=== PATIENT | female | born 1935 | race Caucasian/White ===

== ENCOUNTER 2020-04-19 07:34 | Outpatient (RCR) | payer MEDICARE, BC, SELFPAY | END 2020-05-01 23:59 | disposition home or self-care (01) | LOC: SPT 07:34 | PROVIDERS: PCP Family Medicine; Referring Provider Physician Assistant; Visit Provider Physician Assistant | DX: Z47.1 Aftercare following joint replacement surgery (principal); Z96.651 Presence of right artificial knee joint | CPT/HCPCS: 97110 ==

== ENCOUNTER 2020-05-02 06:00 | Outpatient (RCR) | payer MEDICARE, BC, SELFPAY | END 2020-06-01 23:59 | disposition home or self-care (01) | LOC: SPT 06:00 | PROVIDERS: PCP Family Medicine; Referring Provider Physician Assistant; Visit Provider Physician Assistant | DX: Z47.1 Aftercare following joint replacement surgery (principal); Z96.651 Presence of right artificial knee joint | CPT/HCPCS: 97110 ==

== ENCOUNTER → 2022-04-11 13:58 | Outpatient (BNVA) | payer MEDICARE, SELFPAY | PROVIDERS: PCP Family Medicine; Visit Provider Family Medicine | DX: Z00.00 Encounter for general adult medical examination without abnormal findings (principal) | CPT/HCPCS: 80053; 80061 ==

== ENCOUNTER → 2022-07-04 14:28 | Outpatient (BNVA) | payer MEDICARE, SELFPAY | PROVIDERS: PCP Family Medicine; Visit Provider Surgery | DX: I96 Gangrene, not elsewhere classified (principal); L98.492 Non-pressure chronic ulcer of skin of other sites with fat layer exposed | CPT/HCPCS: 11043; 87070; 87176; 87205; 99213 ==

== ENCOUNTER → 2022-07-11 13:48 | Outpatient (BNVA) | payer MEDICARE, SELFPAY | PROVIDERS: PCP Family Medicine; Visit Provider Surgery | DX: I96 Gangrene, not elsewhere classified (principal); L98.492 Non-pressure chronic ulcer of skin of other sites with fat layer exposed | CPT/HCPCS: 11042 ==

== ENCOUNTER → 2022-07-18 11:23 | Outpatient (BNVA) | payer MEDICARE, OTHER, SELFPAY | PROVIDERS: PCP Family Medicine; Visit Provider Nurse Practitioner Family | DX: I96 Gangrene, not elsewhere classified (principal); L98.492 Non-pressure chronic ulcer of skin of other sites with fat layer exposed | CPT/HCPCS: 11042 ==

== ENCOUNTER → 2022-07-25 13:58 | Outpatient (BNVA) | payer MEDICARE, SELFPAY | PROVIDERS: PCP Family Medicine; Visit Provider Surgery | DX: I96 Gangrene, not elsewhere classified (principal); L98.492 Non-pressure chronic ulcer of skin of other sites with fat layer exposed | CPT/HCPCS: 99212 ==

== ENCOUNTER → 2023-04-28 09:20 | Outpatient (BNVA) | payer MEDICARE, SELFPAY | PROVIDERS: PCP Family Medicine; Visit Provider Family Medicine | DX: E03.9 Hypothyroidism, unspecified (principal); R00.1 Bradycardia, unspecified; R42 Dizziness and giddiness | CPT/HCPCS: 80053; 80061; 84443 ==

== ENCOUNTER 2023-04-29 11:01 | Inpatient (IN) | payer MEDICARE, SELFPAY ==
[2023-04-29] VITALS (34 sets, daily range): BP systolic 129–221; BP diastolic 49–113; PULSE 30–62; RESP 13–24; TEMP 36.7; O2SAT 92–97
--- NOTE | 2023-04-29 11:16 | XR_ITS ---
WS: [id number] Exam: XR chest 1V portable [id number] Date/Time of Exam: 04/29/2023 11:25 AM Reason For Exam: cp No priors. The lungs are hyperinflated. No consolidating infiltrates. Mild plaque atelectasis and/or scarring in the left base. Normal cardiomediastinal silhouette. Bony structures are unremarkable. XR/XR chest 1V portable [id number] IMPRESSION: 1. Pulmonary hyperinflation. No acute process noted.
--- NOTE | 2023-04-29 11:32 | ECG_ITS ---
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 Measurements Intervals [place] Rate: 40 P: 40 VT: 184 QRS: -5 QRSD: 103 T: 40 QT: 499 QTc: 409 Interpretive Statements SINUS BRADYCARDIA WITH OCCASIONAL SUPRAVENTRICULAR PREMATURE COMPLEXES 2:1 AV block POSSIBLE LEFT ATRIAL ENLARGEMENT [-0.1mV P-WAVE IN V1/V2] LOW QRS VOLTAGE IN PRECORDIAL LEADS [QRS DEFLECTION < 1.0 mV IN CHEST LEADS] POSSIBLE LEFT VENTRICULAR HYPERTROPHY [VOLTAGE CRITERIA PLUS LAE OR QRS WIDENING] CRITICAL TEST RESULT No previous ECG available for comparison Electronically Signed On 04-30-2023 19:38:15 CDT by Consuelo Townsend M.D. [id number]
--- NOTE | 2023-04-29 11:49 | ECG_ITS ---
[facility] Test Date: 2023-04-29 Pat Name: Brandi Umaña Department: Room: Gender: Female Manager Council: : 1935 Requested By: Ryan Cuevas Order Number: [id number] Martha MD: Fredy Mckeon M.D. Measurements Intervals [place] Rate: 45 P: 51 SC: 185 QRS: -4 QRSD: 109 T: 37 QT: 470 QTc: 410 Interpretive Statements SINUS RHYTHM WITH A SECOND-DEGREE TYPE II AV BLOCK POSSIBLE LEFT ATRIAL ENLARGEMENT [-0.1mV P-WAVE IN V1/V2] Compared to ECG 04/29/2023 11:32:23 No significant changes [id number] Electronically Signed On 04-30-2023 10:09:15 CDT by Fredy Mckeon M.D. [id number]
--- NOTE | 2023-04-29 12:18 | ED_ITS ---
HPI - Dizziness General: Chief Complaint: Dizziness Stated Complaint: sent by marshall b/son slow pulse, dizzy, Time Seen by Provider: 04/29/23 11:40 History of Present Illness: HPI Narrative: Patient presents to the ER with complaints of lightheaded dizziness presyncope for the last month or so. Patient says she has had these episodes before and ended up in the hospital. Patient states the symptoms occur suddenly especially if she puts her head down or lies down. Patient says her heart rate has always been normal and no ones ever told her its been slow. Patient was seen by her PCP yesterday with a heart rate in the 40s. He said he will refer her to c ardiology for bradycardia causing dizziness. Review of Systems General: Reports: 10 or more systems reviewed and unremarkable except in HPI and below Physical Exam Const: COMMON NORMALS: no acute distress, average body habitus, patient oriented x3, no limitations, healthy appearing, alert and well nourished HENMT: COMMON NORMALS: normocephalic, atraumatic, hearing grossly normal bilaterally, external ears normal, Normal external nose present and moist oral mucous membranes HEAD & SCALP: normocephalic and atraumatic NOSE: Normal external nose present EXTERNAL EAR: Yes external ears normal Eye: COMMON NORMALS: Equal, round and reactive pupils present, EOMs intact bilaterally, conjunctivae normal and no scleral icterus CONJUNCTIVA: Yes conjunctivae normal PUPIL: Yes Equal, round and reactive pupils present Neck/C-Spine: COMMON NORMALS: full ROM, no lymphadenopathy, supple, no meningeal signs, no JVD and Thyroid normal THYROID: Thyroid normal Chest: COMMONS NORMALS: normal inspection of the chest and normal palpation of entire chest wall Resp: COMMON NORMALS: normal respiratory effort, No retractions, No use of accessory muscles and clear to auscultation bilaterally AUSCULTATION: clear to auscultation bilaterally Cardio: COMMON NORMALS: no JVD, regular rate, regular rhythm, S1 normal heart sound present, S2 normal heart sound present, No gallops present (Cardio), No clicks present (Cardio), No murmurs present (Cardio) and No rub (Cardio) RATE: regular rate RHYTHM: regular rhythm HEART SOUNDS: S1 normal heart sound present and S2 normal heart sound present GI: COMMON NORMALS: Normal to inspection, nondistended, normoactive bowel sounds present, Soft to palpation, non-tender, No hepatosplenomegaly present and no masses PALPATION: Yes Soft to palpation and Yes No hepatosplenomegaly present : COMMON NORMALS: Yes no CVA tenderness BLADDER/KIDNEY EXAM: Yes no CVA tenderness Back/Pelvis: COMMON NORMALS: no CVA tenderness Neuro: COMMON NORMALS: patient oriented x3 SENSORIUM/ORIENTATION: Yes alert MENINGEAL SIGNS: Yes no meningeal signs Course Vital Signs: Vital signs: Vital Signs Temperature 98.0 F 04/29/23 11:22 Pulse Rate 39 L 04/29/23 15:36 Respiratory Rate 17 04/29/23 15:36 Blood Pressure 171/67 04/29/23 15:36 Pulse Oximetry 94 04/29/23 15:36 Oxygen Delivery Me thod Room Air 04/29/23 14:39 MDM - Dizziness Medical Decision Making Patient was sent over here by her PCP for low heart rate high blood pressure dizziness and presyncopal episodes. Is been going on for about a month and getting worse. Patient's heart rate was noted to be in the low 40s dropping all the way down to 35. Blood work was obtained EKGs was obtained which showed sinus bradycardia with a type II AV block Mobitz type II, Dr. Zhou was consulted and agreed for inpatient evaluation and treatment. He did recommend we contact Dr. Townsend cardiology for possible pacemaker. Differential Diagnosis Likely orthostatic hypotension; Unlikely adverse reaction to drug, vertebral basilar insufficiency, cerebrovascular accident, acute vestibular neuronitis or transient cerebral ischemia Medical Records I reviewed the patient's medical records. Lab Data I reviewed the patient's lab results. 04/29/23 12:30 04/29/23 12:30 Radiology Impressions Chest X-Ray 04/29/23 11:16 IMPRESSION: 1. Pulmonary hyperinflation. No acute process noted. Laboratory Results WBC 7.3 10^3/uL (4.0-10.0) 04/29/23 12:30 RBC 4.83 10^6/uL (4.1-5.3) 04/29/23 12:30 Hgb 14.5 g/dL (11.5-15.3) 04/29/23 12:30 Hct 44.8 % (37.0-47.0) 04/29/23 12:30 MCV 92.8 fl (81-99) 04/29/23 12:30 MCH 30.0 pg (28.0-34.0) 04/29/23 12:30 MCHC 32.4 g/dL (30.0-36.0) 04/29/23 12:30 RDW 14.8 % (12.1-15.1) 04/29/23 12:30 Plt Count 231 10^3/cmm (130-400) 04/29/23 12:30 MPV 11.2 fL (7.4-10.4) H 04/29/23 12:30 Neut % (Auto) 74.3 % 04/29/23 12:30 Lymph % (Auto) 16.4 % 04/29/23 12:30 [place] % (Auto) 6.4 % 04/29/23 12:30 Eos % (Auto) 2.1 % 04/29/23 12:30 Baso % (Auto) 0.5 % 04/29/23 12:30 Neut # (Auto) 5.43 10^3/uL (1.8-7.7) 04/29/23 12:30 Lymph # (Auto) 1.2 10^3/uL (0.8-4.8) 04/29/23 12:30 [place] # (Auto) 0.5 10^3/uL (0.2-0.9) 04/29/23 12:30 Eos # (Auto) 0.2 10^3/uL (0.0-0.8) 04/29/23 12:30 Baso # (Auto) 0.0 10^3/uL (0.0-0.1) 04/29/23 12:30 Nucleated RBC % (auto) 0 % 04/29/23 12:30 Nucleated RBCs # 0.0 /100WBC 04/29/23 12:30 Sodium 143 mmol/L (136-145) 04/29/23 12:30 Potassium 4.4 mmol/L (3.5-5.1) 04/29/23 12:30 Chloride 109 mmol/L (98-107) H 04/29/23 12:30 Carbon Dioxide 24 mmol/L (22-29) 04/29/23 12:30 Anion Gap 14.4 (5-19) 04/29/23 12:30 BUN 27 mg/dL (8-23) H 04/29/23 12:30 Creatinine 1.0 mg/dL (0.5-0.9) H 04/29/23 12:30 GFR Calculation Not Reportable 04/29/23 12:30 Glucose 94 mg/dL (65-115) 04/29/23 12:30 Calculated Osmolality 301 mOsm/kg (285-295) H 04/29/23 12:30 Calcium 8.9 mg/dL (8.5-10.5) 04/29/23 12:30 Magnesium 2.5 mg/dL (1.7-2.3) H 04/29/23 12:30 Total Bilirubin 0.3 mg/dL (0.15-1.2) 04/29/23 12:30 AST 14 U/L (0-32) 04/29/23 12:30 ALT 12 U/L (0-33) 04/29/23 12:30 Alkaline Phosphatase 83 U/L (35-105) 04/29/23 12:30 Troponin T Baseline 13 ng/L (0-10) H 04/29/23 12:30 Troponin T 120 Minute 15.13 ng/L (0-10) H 04/29/23 14:16 Delta Troponin T 2.13 ABS# (0-10) 04/29/23 14:16 Total Protein 6.3 g/dL (6.6-8.7) L 04/29/23 12:30 Albumin 4.4 g/dL (3.5-5.2) 04/29/23 12:30 Globulin 1.9 g/dL (1.3-4.6) 04/29/23 12:30 Urine Color Colorless (Yellow) 04/29/23 13:09 Urine Appearance Clear (CLEAR) 04/29/23 13:09 Urine pH 6 (5-7) 04/29/23 13:09 Ur Specific [place] 1.015 (1.005-1.030) 04/29/23 13:09 Urine Protein Neg (Negative) 04/29/23 13:09 Urine Glucose (UA) Norm (Normal) 04/29/23 13:09 Urine Ketones Negative (Negative) 04/29/23 13:09 Urine Blood Neg (Negative) 04/29/23 13:09 Urine Nitrate Negative (Negative) 04/29/23 13:09 Urine Bilirubin Neg (Negative) 04/29/23 13:09 Urine Urobilinogen Norm mg/dL (Negative) 04/29/23 13:09 Ur Leukocyte Esterase Negative (Negative) 04/29/23 13:09 EKG Data EKG 1: I personally reviewed and interpreted this EKG as follows: EKG interpretation date: 04/29/23 EKG interpretation time: 11:49 Prior EKG tracings: not available for review Interpretation: EKG showed ventricular rate of 45 bpm, ME interval 185, QRS 109, QTc 426, sinus bradycardia, possible left atrial lodgment, no ST-T wave changes EKG 2: I personally reviewed and interpreted this EKG as follows: EKG interpretation date: 04/29/23 EKG interpretation time: 15:53 Prior EKG tracings: not available for review Interpretation: EKG showed ventricular rate 39 bpm, QRS duration 105, QTc of 436, sinus bradycardia with second-degree AV block 2-1 or Mobitz type II. Discharge Plan Discharge Patient Disposition: Admitted As Inpatient Clinical Impression: Symptomatic bradycardia, Hypertension Condition: Stable Prescriptions: No Action multivitamin Tablet 1 tab PO DAILY PRN (Reason: unknown) Magnesium Citrate Powder 1 tsp PO BEDTIME Referrals: Jaems Ortez DO [Primary Care Provider] - Coding Level of Care Code ED Upper Shaper for Chg Jaimie
[2023-04-29 12:38] LABS: Basophils % 0.5 %; Eosinophils # 0.2 10^3/uL (0.0-0.8); Eosinophils % 2.1 %; Hematocrit 44.8 % (37.0-47.0); Hemoglobin 14.5 g/dL (11.5-15.3); Lymphocytes # 1.2 10^3/uL (0.8-4.8); Lymphocytes % 16.4 %; Mean Corpuscular HGB Conc 32.4 g/dL (30.0-36.0); Mean Corpuscular Volume 92.8 fl (81-99); Mean Platelet Volume 11.2 fL (7.4-10.4); Monocytes # 0.5 10^3/uL (0.2-0.9); Monocytes % 6.4 %; Neutrophils # 5.43 10^3/uL (1.8-7.7); Neutrophils % 74.3 %; Nucleated Red Blood Cells % 0 %; Platelet Count 231 10^3/cmm (130-400); Red Blood Count 4.83 10^6/uL (4.1-5.3); Red Cell Distribution Width 14.8 % (12.1-15.1); White Blood Count 7.3 10^3/uL (4.0-10.0)
[2023-04-29 12:55] LABS: Troponin(5th) Baseline 13 ng/L (0-10)
[2023-04-29 12:58] LABS: Alanine Aminotransferase 12 U/L (0-33); Albumin Level 4.4 g/dL (3.5-5.2); Alkaline Phosphatase 83 U/L (35-105); Anion Gap 14.4 (5-19); Aspartate Amino Transferase 14 U/L (0-32); Blood Urea Nitrogen 27 mg/dL (8-23); Calcium 8.9 mg/dL (8.5-10.5); Carbon Dioxide 24 mmol/L (22-29); Chloride 109 mmol/L (98-107); Globulin 1.9 g/dL (1.3-4.6); Glucose 94 mg/dL (65-115); Magnesium 2.5 mg/dL (1.7-2.3); Osmolality Calculated 301 mOsm/kg (285-295); Potassium 4.4 mmol/L (3.5-5.1); Sodium 143 mmol/L (136-145); Total Bilirubin 0.3 mg/dL (0.15-1.2); Total Protein 6.3 g/dL (6.6-8.7)
[2023-04-29 13:14] LABS: Add Urine Microscopic? NO; Charge for UA Resulting for Rev
[2023-04-29 13:19] LABS: Urine Color Colorless (Yellow)
[2023-04-29 13:20] LABS: Bilirubin Urine Neg (Negative); Blood Urine Neg (Negative); Glucose Urine UA Norm (Normal); Ketones Urine Negative (Negative); Leukocyte Esterase Urine Negative (Negative); Nitrate Urine Negative (Negative); Protein Urine Neg (Negative); Specific Gravity, Urine 1.015 (1.005-1.030); Urine Appearance Clear (CLEAR); Urobilinogen Urine Norm (Negative); pH Urine 6 (5-7)
--- NOTE | 2023-04-29 13:34 | PC.PHAR ---
pt states she takes no prescription medications-pt states just takes otc mag hs and multivitamins prn-
[2023-04-29 15:03] LABS: Troponin 5 2HR 15.13 ng/L (0-10); Troponin 5 2HR Delta 2.13 ABS# (0-10)
--- NOTE | 2023-04-29 15:53 | ECG_ITS ---
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 Measurements Intervals [place] Rate: 39 P: 0 PA: 0 QRS: -4 QRSD: 105 T: 26 QT: 509 QTc: 413 Interpretive Statements SINUS BRADYCARDIA WITH 2ND DEGREE AV BLOCK, 2:1 OR MOBITZ TYPE II MINIMAL ST DEPRESSION [0.025+ mV ST DEPRESSION] CRITICAL TEST RESULT Compared to ECG 04/29/2023 11:49:19 ST (T wave) deviation now present Electronically Signed On 04-30-2023 12:24:20 CDT by Consuelo Townsend M.D. [id number]
[2023-04-29 16:43] LABS: D Dimer 0.58 ug/mIFEU (0-0.59)
--- NOTE | 2023-04-29 16:53 | PM.HP ---
Providers/Chief Complaint Primary Care Provider: James Ortez DO Chief Complaint: sent by marshall b/c slow pulse, dizzy, History of Present Illness Brandi Umaña is a 88 year old female without significant past medical history presented with chief complaint of presyncope. Patient is stating that she has been very active throughout her life, about a month ago she started experiencing dizziness, fatigue and lethargy, not associated with any chest pain or syncopal events. She is not on any antihypertensive or AV casper blocking agents. No previous history of coronary disease or CHF. No family history of some requiring pacemaker. She was sent from the clinic for bradycardia She was diagnosed with type II second-degree AV block She is hypertensive required 2 doses of hydralazine 10 mg IV push She is stable asymptomatic at the time of my evaluation heart rate fluctuating between 50 to 60s ZOLL pads on her chest Review of Systems Const: Denies: fever(s) Eyes: Denies: change in vision ENMT: Denies: throat pain Card: Denies: chest pain Resp: Reports: dyspnea GI: Denies: abdominal pain : Denies: flank pain Musc: Denies: neck pain Skin/Breast: Denies: rash Neuro: Reports: headache(s) Psych: Denies: anxiety Endo: Denies: polyuria Medications/Allergies Home Medications Medication Instructions Recorded Confirmed Last Taken Type Magnesium Citrate Powder 1 tsp PO BEDTIME 04/29/23 04/29/23 04/28/23 History multivitamin 1 tab PO DAILY PRN unknown 04/29/23 04/29/23 Unknown History Allergies Allergy/AdvReac Type Severity Reaction Status Date / Time No Known Allergies Allergy Verified 04/29/23 13:32 PFSH Acute PFSH: Medical History (Updated 04/29/23 @ 16:54 by Adrienne Zhou MD) Hypertension Surgical History (Updated 04/29/23 @ 18:59 by Adrienne Zhou MD) No significant past surgical history Family History (Updated 04/29/23 @ 18:59 by Adrienne Zhou MD) Other CAD (coronary artery disease) Social History (Updated 04/29/23 @ 18:59 by Adrienne Zhou MD) Smoking and tobacco status: never smoked Alcohol intake: never Substance/Drug Use: never Household members: spouse Housing: House Vitals/I&O/Wt Last Vital Signs Temp 98.0 F 04/29/23 11:22 Pulse 41 L 04/29/23 16:30 Resp 16 04/29/23 16:30 BP 203/70 04/29/23 16:30 Pulse Ox 95 04/29/23 16:30 O2 Del Method Room Air 04/29/23 14:39 Weight last 48 hrs Weight 70.307 kg Physical Exam Narrative: Asymptomatic Hypertension Heart rate did fluctuate between 50-60 Currently on room air No active symptoms Nonfocal neuro exam GCS 15 S1, S2 Bradycardia Data 04/29/23 12:30 04/29/23 12:30 A&P Assessment and plan (1) Symptomatic bradycardia: (2) Hypertension: Qualifiers: Hypertension type: unspecified Qualified Code(s): I10 - Essential (primary) hypertension (3) Dizziness: (4) Bradycardia: (5) Second degree AV block, Mobitz type II: Plan Symptomatic bradycardia Type II AV block Pacemaker evaluation Cardiology is consulted We will make n.p.o. after midnight In case of any worsening of symptoms overnight, pressure was still low to call Dr. Mckeon for transvenous pacemaker Dr. Cormier has been consulted We will request D-dimer TSH Magnesium level Patient does not have any history of coronary disease, will request echo Patient may require coronary ischemia evaluation at some point Full code N.p.o. after midnight DVT prophylaxis SCDs Hypertension: Added lisinopril and amlodipine Attestations Medical Necessity Statement*: More than 2 midnights anticipated Diagnoses Symptomatic bradycardia R00.1 Hypertension I10 Hypertension type: unspecified Dizziness R42 Bradycardia R00.1 Second degree AV block, Mobitz type II I44.1
[2023-04-29 17:06] LABS: Thyroid Stimulating Hormone 2.69 uIU/mL (0.27-4.20)
--- NOTE | 2023-04-29 17:38 | PC.NURSE ---
PT TOOK PURSE HOME LEAVING HER WITH JUST HER PHONE.
--- NOTE | 2023-04-29 18:30 | PC.NURSE ---
received pt from ER w/ order of ICU admit pt noted to have a 2nd degree type 2 heart block w/ HR in 38-42 to 3rd. Pt denies any dizziness or syncope except movement. dr solano in room and received order to apply pacer pads. notified house sup of pt admit order is originally to an ICU bed. monitored pt.
[2023-04-29 18:35] LABS: Troponin 5 6HR 16.26 ng/L (0-10)
[2023-04-29 18:36] LABS: Troponin 5 6HR Delta 3.26 ng/L (0-12)
--- NOTE | 2023-04-29 18:59 | USCV_ITS ---
Leeroy Brandi Age: 88 Gender: F : 1935 Exam Date: 04/29/2023 21:21 Ordering Phys: Adrienne Zhou MD Technologist: JUAN LUIS Exam Location: [facility] [place] Indication: dizziness, bradycardia. No history of cardiac intervention per patient. BP: 205 / 69 HR: 47 Rhythm: Sinus bradycardia Technical Quality: Adequate MEASUREMENTS (Male / Female) Normal Values 2D ECHO LV Diastolic Diameter PLAX 3.2 cm 4.2 - 5.9 / 3.9 - 5.3 cm LV Systolic Diameter PLAX 2.0 cm IVS Diastolic Thickness 1.9 cm 0.6 - 1.0 / 0.6 - 0.9 cm IVS Systolic Thickness 2.2 cm LVPW Diastolic Thickness 1.0 cm 0.6 - 1.0 / 0.6 - 0.9 cm LVPW Systolic Thickness 1.8 cm LVOT Diameter 1.9 cm LV Ejection Fraction 2D Teich 67.5 % LV Ejection Fraction MOD 2C 71.3 % LV Ejection Fraction 2C AL 74.7 % LA Diameter 3.2 cm LA Width 3.9 cm LA Height 4.5 cm RA Width 3.2 cm RA Height 4.1 cm Aorta at Sinotubular Diameter 3.1 cm IVC Diameter 1.3 cm M-MODE Aortic Annulus Diameter 2.8 cm LA Ao Ratio MM 1.1 MV E Point Septal Separation 0.1 cm DOPPLER AV Peak Velocity 182.0 cm/s LVOT Peak Velocity 132.0 cm/s AV Area Cont Eq vti 2.0 cm squared AV Area Cont Eq pk 2.1 cm squared MV Peak Velocity 196.0 cm/s MV Area PHT 4.5 cm squared Mitral E to A Ratio 0.9 MV E' Velocity 93.6 cm/s Mitral E to MV E' Ratio 11.0 Mitral E to LV E' Lateral Ratio 11.4 Mitral E to LV E' Septal Ratio 10.8 TR Peak Velocity 280.0 cm/s TR Peak Gradient 31.4 mmHg TV Peak E Velocity 69.0 cm/s Right Atrial Pressure 5.0 mmHg Pulmonary Artery Systolic Pressu 36.4 mmHg PV Peak Velocity 131.0 cm/s RV Acceleration Time 0.1 s RV Ejection Time 0.3 s RV AcT/ET 0.3 FINDINGS Left Ventricle Normal left ventricular size, systolic function with no regional wall motion abnormalities. Left ventricular ejection fraction is estimated at 70 %. Basal septal hypertrophy. Right Ventricle Normal right ventricular size and systolic function. Right ventricular systolic pressure 34 mmHg. Right Atrium Normal right atrial size. Left Atrium Normal left atrial size. Mitral Valve Moderate mitral annular calcification. Mildly thickened mitral valve. No mitral valve stenosis. Trace mitral valve regurgitation. Aortic Valve Mildly thickened trileaflet aortic valve. No aortic valve stenosis. No aortic valve regurgitation. Tricuspid Valve Structurally normal tricuspid valve. No tricuspid valve stenosis. Trace tricuspid valve regurgitation. Pulmonic Valve Structurally normal pulmonic valve. No pulmonary valve stenosis. No pulmonary valve regurgitation. Pericardium No pericardial effusion. Aorta Normal size aortic root and proximal ascending aorta. IVC Normal IVC dimension with >50% respiratory change of the inferior vena cava. CONCLUSIONS 1. Normal left ventricular size, systolic function with no regional wall motion abnormalities. Left ventricular ejection fraction is estimated at 70 %. Basal septal hypertrophy. 2. Normal right ventricular size and systolic function. 3. No prior similar studies to compare. Consuelo Townsend MD (Electronically Signed) Final Date: 30 April 2023 09:26 S
[2023-04-29] MEDS: DOPamine drip 400 MG/250 ML PREMIX 13.18 MG IV (19:44)
[2023-04-29 20:02] LABS: Estmated Average Glucose 114; Hemoglobin A1C 5.6 % (4.0-6.0)
[2023-04-29 20:14] LABS: Vitamin B12 459 pg/mL (232-1245)
[2023-04-30] VITALS (94 sets, daily range): BP systolic 89–161; BP diastolic 34–110; PULSE 38–63; RESP 10–29; TEMP 36.6–36.9; O2SAT 91–93
[2023-04-30 03:48] LABS: Basophils % 0.2 %; Eosinophils # 0.1 10^3/uL (0.0-0.8); Eosinophils % 0.8 %; Hematocrit 47.5 % (37.0-47.0); Hemoglobin 16.2 g/dL (11.5-15.3); Lymphocytes # 1.1 10^3/uL (0.8-4.8); Mean Corpuscular HGB Conc 34.1 g/dL (30.0-36.0); Mean Corpuscular Hemoglobin 31.2 pg (28.0-34.0); Mean Corpuscular Volume 91.5 fl (81-99); Mean Platelet Volume 10.9 fL (7.4-10.4); Monocytes # 0.7 10^3/uL (0.2-0.9); Monocytes % 5.4 %; Neutrophils # 10.38 10^3/uL (1.8-7.7); Neutrophils % 84.2 %; Nucleated Red Blood Cells % 0 %; Platelet Count 233 10^3/cmm (130-400); Red Blood Count 5.19 10^6/uL (4.1-5.3); Red Cell Distribution Width 14.6 % (12.1-15.1); White Blood Count 12.3 10^3/uL (4.0-10.0)
[2023-04-30 04:10] LABS: Anion Gap 16.9 (5-19); Blood Urea Nitrogen 19 mg/dL (8-23); C Reactive Protein 4.2 mg/L (0.0-4.9); Calcium 9.5 mg/dL (8.5-10.5); Carbon Dioxide 24 mmol/L (22-29); Chloride 108 mmol/L (98-107); Glucose 201 mg/dL (65-115); Magnesium 2.3 mg/dL (1.7-2.3); Osmolality Calculated 308 mOsm/kg (285-295); Potassium 3.9 mmol/L (3.5-5.1); Sodium 145 mmol/L (136-145)
[2023-04-30] MEDS: DOPamine drip 400 MG/250 ML PREMIX 32.96 MG IV (04:27)
[2023-04-30] MEDS: ondansetron 2 mg/ML SDV 2 mL 4 MG IVP (05:57)
[2023-04-30] MEDS: amlodipine 10 mg Tablet PO (08:12)
[2023-04-30] MEDS: lisinopril 20 mg Tablet PO (08:12)
--- NOTE | 2023-04-30 08:59 | P.PN_ITS ---
Subjective Subjective: Heart rate in 40s Patient experienced 1 episode of emesis She is n.p.o. I notified Dr. Townsend, patient is denying chest pain or shortness of breath Vitals/I&O/Wt Last Vital Signs Temp 97.9 F 04/30/23 05:48 Pulse 46 L 04/30/23 08:00 Resp 16 04/30/23 08:00 BP 161/57 04/30/23 05:48 Pulse Ox 93 04/30/23 08:00 O2 Del Method Room Air 04/30/23 08:00 04/29/23 04/30/23 04/30/23 22:59 06:59 14:59 Intake Total 279.979 / 279.979 245.117 / 525.096 Output Total 350 / 350 700 / 1050 Balance -70.021 / -70.021 -454.883 / -524.904 Weight last 48 hrs Weight 70.307 kg Physical Exam Narrative: Second-degree high degree AV block Hypertensive Heart rate in 40s Currently on room air Pleasant and cooperative Euvolemic S1, S2 Abdomen soft GCS 15 Data 04/30/23 03:20 04/30/23 03:20 A&P Assessment and plan (1) Second degree AV block, Mobitz type II: (2) Symptomatic bradycardia: (3) Dizziness: (4) Hypertension: Qualifiers: Hypertension type: unspecified Qualified Code(s): I10 - Essential (primary) hypertension Plan High degree AV block Heart rate in 40s Symptomatic No chest pain Troponins negative Report is pending Notify Dr. Townsend Patient is in ICU No active symptoms at this point Likely will need a pacemaker We will touch base with cardiology recommendations She is n.p.o. TSH is normal D-dimer unremarkable I have added lisinopril and amlodipine for her hypertension Attestations Medical Necessity Statement*: Continue medical management Diagnoses Second degree AV block, Mobitz type II I44.1 Symptomatic bradycardia R00.1 Dizziness R42 Hypertension I10 Hypertension type: unspecified
--- NOTE | 2023-04-30 09:07 | PM.CONSULT ---
Providers/Reason For Consult Consulting Physician/Specialty*: Dr. Townsend, Cardiology Reason for Consult*: High grade AV block Attending Physician: Adrienne Zhou MD Primary Care Provider: James Ortez DO History of Present Illness History of Present Illness Brandi Umaña is a 88 year old female with no prior medical history presented for evaluation of bradycardia and dizziness. She has been having lethargy and weakness for past month and recently noticed low pulse. She came to ER for further evaluation. EKG on arrival showed sinus rhythm with 2:1 AV block. Troponin T 13--> 15--> 16. No chets pain or SOB. HR on arrival in ER high 30's-40's. She is no dopamine gtt that is not changing anything. Review of Systems Const: Denies: fever(s) Eyes: Denies: change in vision ENMT: Denies: throat pain Card: Reports: lightheadedness and dyspnea on exertion; Denies: chest pain, palpitations, edema or orthopnea Resp: Reports: dyspnea GI: Denies: abdominal pain : Denies: flank pain Musc: Denies: neck pain Skin/Breast: Denies: rash Neuro: Reports: headache(s) Psych: Denies: anxiety or depression Endo: Denies: polyuria Khoi/Lymph: Denies: easy bruising or easy bleeding Medications/Allergies Home Medications Medication Instructions Recorded Confirmed Last Taken Type Magnesium Citrate Powder 1 tsp PO BEDTIME 04/29/23 04/29/23 04/28/23 History multivitamin 1 tab PO DAILY PRN unknown 04/29/23 04/29/23 Unknown History Allergies Allergy/AdvReac Type Severity Reaction Status Date / Time No Known Allergies Allergy Verified 04/29/23 13:32 Current Medications Generic Name Dose Route Start Last Admin Trade Name Freq PRN Reason Stop Dose Admin Amlodipine Besylate 10 mg 04/30/23 09:00 04/30/23 08:12 Amlodipine 10 Mg Tablet PO 10 mg DAILY VERONA Administration Dopamine HCl/Dextrose 400 mg in 250 mls @ 13.183 mls/hr 04/29/23 18:59 04/30/23 06:00 Intropin Drip IV 10 mcg/kg/min CONT PRN 26.37 mls/hr symptomatic bradycardia Titration Protocol 5 MCG/KG/MIN Lisinopril 20 mg 04/30/23 09:00 04/30/23 08:12 Lisinopril 20 Mg Tablet PO 20 mg DAILY VERONA Administration Ondansetron HCl 4 mg 04/29/23 18:59 04/30/23 05:57 Ondansetron 2 Mg/Ml Sdv 2 Ml IVP 4 mg Q6H PRN Administration NAUSEA AND VOMITING Senna/Docusate Sodium 1 tab 04/30/23 09:00 04/30/23 08:13 Sennosides-Docusate Tablet PO Not Given DAILY VERONA PFSH Acute PFSH: Medical History Hypertension Surgical History No significant past surgical history Family History Other CAD (coronary artery disease) Social History Smoking and tobacco status: never smoked Alcohol intake: never Substance/Drug Use: never Household members: spouse Housing: House Vitals/I&O/Wt Last Vital Signs Temp 97.9 F 04/30/23 05:48 Pulse 46 L 04/30/23 08:00 Resp 16 04/30/23 08:00 BP 161/57 04/30/23 05:48 Pulse Ox 93 04/30/23 08:00 O2 Del Method Room Air 04/30/23 08:00 04/29/23 04/30/23 04/30/23 22:59 06:59 14:59 Intake Total 279.979 / 279.979 245.117 / 525.096 Output Total 350 / 350 700 / 1050 Balance -70.021 / -70.021 -454.883 / -524.904 Weight last 48 hrs Weight 155 lb Physical Exam Narrative: GENERAL: Averagely built and averagely nourished in no acute distress HEENT: Extraocular movement intact. No pallor or icterus. NECK: central trachea, No JVD. No carotid bruit. CARDIOVASCULAR SYSTEM: S1-S2 regular. No S3 or S4 present. [No murmur rubs or gallops.] RESPIRATORY SYSTEM: Chest clear to auscultation. No wheezes rhonchi or rubs heard. No use of accessory muscles. ABDOMEN: Soft, nontender and nondistended. Normal bowel sounds present. No hepatosplenomegaly appreciated. EXTREMITIES: No cyanosis or clubbing. No edema. No signs of chronic venous insufficiency. ADULT PROBATION OFFICER: Patient is alert oriented ?3. No focal neurological deficits. SKIN: Normal turgor and temperature. PSYCH: Normal insight and judgment. Data 04/30/23 03:20 04/30/23 03:20 Other data: EKG with sinus rhythm and 2:1 AV block A&P Assessment and plan (1) Symptomatic bradycardia: She will need dual chamber PPM. She is right handed. All her questions about PPM was discussed -I will discuss with Dr. Mckeon and potential PPM placement today/tomorrow. -will keep her NPO for now. (2) Second degree AV block, Mobitz type II: (3) Hypertension: on amlodipine and lisinopril today Qualifiers: Hypertension type: unspecified Qualified Code(s): I10 - Essential (primary) hypertension Plan Mild leucocytosis Dizziness Coding Level of Care Code 69278 Diagnoses Symptomatic bradycardia R00.1 Second degree AV block, Mobitz type II I44.1 Hypertension I10 Hypertension type: unspecified
--- NOTE | 2023-04-30 13:49 | PM.CONSULT ---
Providers/Reason For Consult Consulting Physician/Specialty*: JUAN MANUEL Mckeon MD/cardiology Reason for Consult*: Permanent pacemaker implantation Requesting Physician: Dr. Townsend/Dr. Zhou Attending Physician: Adrienne Zhou MD Primary Care Provider: James Ortez DO History of Present Illness History of Present Illness Brandi Umaña is a 88 year old female with no significant past medical history, is admitted to the hospital with complaints of dizziness and slow heart rate. She was found to be in second-degree heart block with a heart rate in the 30s and 40s. I am asked to evaluate this patient for permanent pacemaker plantation. Patient has no history for coronary disease Apparently this patient has been having symptoms of dizziness/weakness for the last 1 month or so. She never had any syncopal episodes. Her feeling of weakness/dizziness seems to be getting worse. She has no chest pain. No fever, chills or cough. No dysuria. Patient is on dopamine 10 mics per KG per minute. Her white cell count was found to be slightly elevated. Her urinalysis is unremarkable. Chest x-ray also was found to be unremarkable. No signs of infection so far. Review of Systems Narrative: CONSTITUTIONAL: No fever or chills. EYES: No blurring of vision or other visual disturbances lately. ENT: No hoarseness of voice, auditory disturbances or sore throat. CARDIOVASCULAR: As mentioned above. RESPIRATORY: No significant cough. GASTROINTESTINAL: No hematemesis or melena. GENITOURINARY: No dysuria or hematuria. INTEGUMENTARY: No skin rashes or history of skin cancer. NEURO: Episodes of dizziness/weak spells PSYCHIATRIC: No history of psychosis or major depression. HEMATOLOGIC: No bleeding disorders or significant anemia. ENDOCRINE: No history of polyuria or polydipsia. MUSCULOSKELETAL: No recent joint pain or swelling. ALLERGY/IMMUNOLOGY: As mentioned above. Medications/Allergies Home Medications Medication Instructions Recorded Confirmed Last Taken Type Magnesium Citrate Powder 1 tsp PO BEDTIME 04/29/23 04/29/23 04/28/23 History multivitamin 1 tab PO DAILY PRN unknown 04/29/23 04/29/23 Unknown History Allergies Allergy/AdvReac Type Severity Reaction Status Date / Time No Known Allergies Allergy Verified 04/29/23 13:32 Current Medications Generic Name Dose Route Start Last Admin Trade Name Freq PRN Reason Stop Dose Admin Amlodipine Besylate 10 mg 04/30/23 09:00 04/30/23 08:12 Amlodipine 10 Mg Tablet PO 10 mg DAILY VERONA Administration Dopamine HCl/Dextrose 400 mg in 250 mls @ 13.183 mls/hr 04/29/23 18:59 04/30/23 06:00 Intropin Drip IV 10 mcg/kg/min CONT PRN 26.37 mls/hr symptomatic bradycardia Titration Protocol 5 MCG/KG/MIN Lisinopril 20 mg 04/30/23 09:00 04/30/23 08:12 Lisinopril 20 Mg Tablet PO 20 mg DAILY VERONA Administration Ondansetron HCl 4 mg 04/29/23 18:59 04/30/23 05:57 Ondansetron 2 Mg/Ml Sdv 2 Ml IVP 4 mg Q6H PRN Administration NAUSEA AND VOMITING Senna/Docusate Sodium 1 tab 04/30/23 09:00 04/30/23 08:13 Sennosides-Docusate Tablet PO Not Given DAILY VERONA PFSH Acute PFSH: Medical History Hypertension Surgical History No significant past surgical history Family History Other CAD (coronary artery disease) Social History Smoking and tobacco status: never smoked Alcohol intake: never Substance/Drug Use: never Household members: spouse Housing: House Vitals/I&O/Wt Last Vital Signs Temp 97.9 F 04/30/23 05:48 Pulse 43 L 04/30/23 12:30 Resp 19 H 04/30/23 12:30 BP 126/47 04/30/23 12:30 Pulse Ox 93 04/30/23 08:00 O2 Del Method Room Air 04/30/23 08:00 04/29/23 04/30/23 04/30/23 22:59 06:59 14:59 Intake Total 279.979 / 279.979 245.117 / 525.096 Output Total 350 / 350 700 / 1050 Balance -70.021 / -70.021 -454.883 / -524.904 Weight last 48 hrs Weight 155 lb Physical Exam Narrative: GENERAL: The patient is alert and oriented times three. Not in any acute distress. HEENT: No significant pallor, icterus or lymphadenopathy.Oral cavity: There are no mucous membrane lesions. NECK: Trachea appears to be central. No masses noted. No JVD or thyromegaly appreciated. RESPIRATORY: Chest is symmetrical. No intercostals muscle retraction or any accessory muscle activation. There is no chest wall tenderness. Breath sounds are heard bilaterally. No rales or rhonchi heard. No evidence of any consolidation. BREASTS: Deferred. HEART: The heart sounds are normal. No S3 or S4. No significant murmurs. No pericardial rub ABDOMEN: No vessel pulsations or distention. No tenderness. No organomegaly appreciated. Bowel sounds are normally heard. : Deferred. RECTAL: Deferred. LYMPHATIC: No lymphadenopathy noted in the neck. EXTREMITIES: No edema or cyanosis. No clubbing. MUSCULOSKELETAL: No acute joint deformities or swelling SKIN: There are no significant rashes or ecchymosis NEUROPSYCHIATRIC: The patient is alert and oriented x3. Appears to be in a good mood. No tremors or rigidity noted. Data 04/30/23 03:20 04/30/23 03:20 Other Labs: Laboratory Last Values WBC 12.3 10^3/uL (4.0-10.0) H 04/30/23 03:20 RBC 5.19 10^6/uL (4.1-5.3) 04/30/23 03:20 Hgb 16.2 g/dL (11.5-15.3) H 04/30/23 03:20 Hct 47.5 % (37.0-47.0) H 04/30/23 03:20 MCV 91.5 fl (81-99) 04/30/23 03:20 MCH 31.2 pg (28.0-34.0) 04/30/23 03:20 MCHC 34.1 g/dL (30.0-36.0) D 04/30/23 03:20 RDW 14.6 % (12.1-15.1) 04/30/23 03:20 Plt Count 233 10^3/cmm (130-400) 04/30/23 03:20 MPV 10.9 fL (7.4-10.4) H 04/30/23 03:20 Neut % (Auto) 84.2 % 04/30/23 03:20 Lymph % (Auto) 9.0 % 04/30/23 03:20 [place] % (Auto) 5.4 % 04/30/23 03:20 Eos % (Auto) 0.8 % 04/30/23 03:20 Baso % (Auto) 0.2 % 04/30/23 03:20 Neut # (Auto) 10.38 10^3/uL (1.8-7.7) H 04/30/23 03:20 Lymph # (Auto) 1.1 10^3/uL (0.8-4.8) 04/30/23 03:20 [place] # (Auto) 0.7 10^3/uL (0.2-0.9) 04/30/23 03:20 Eos # (Auto) 0.1 10^3/uL (0.0-0.8) 04/30/23 03:20 Baso # (Auto) 0.0 10^3/uL (0.0-0.1) 04/30/23 03:20 Nucleated RBC % (auto) 0 % 04/30/23 03:20 Nucleated RBCs # 0.0 /100WBC 04/30/23 03:20 D-Dimer 0.58 ug/mIFEU (0-0.59) 04/29/23 12:30 Sodium 145 mmol/L (136-145) 04/30/23 03:20 Potassium 3.9 mmol/L (3.5-5.1) 04/30/23 03:20 Chloride 108 mmol/L (98-107) H 04/30/23 03:20 Carbon Dioxide 24 mmol/L (22-29) 04/30/23 03:20 Anion Gap 16.9 (5-19) 04/30/23 03:20 BUN 19 mg/dL (8-23) 04/30/23 03:20 Creatinine 0.8 mg/dL (0.5-0.9) 04/30/23 03:20 GFR Calculation Not Reportable 04/30/23 03:20 Glucose 201 mg/dL (65-115) H 04/30/23 03:20 Estimat Average Glucose 114 04/29/23 12:30 Hemoglobin A1c 5.6 % (4.0-6.0) 04/29/23 12:30 Calculated Osmolality 308 mOsm/kg (285-295) H 04/30/23 03:20 Calcium 9.5 mg/dL (8.5-10.5) 04/30/23 03:20 Phosphorus 3.0 mg/dL (2.5-4.5) 04/30/23 03:20 Magnesium 2.3 mg/dL (1.7-2.3) 04/30/23 03:20 Total Bilirubin 0.3 mg/dL (0.15-1.2) 04/29/23 12:30 AST 14 U/L (0-32) 04/29/23 12:30 ALT 12 U/L (0-33) 04/29/23 12:30 Alkaline Phosphatase 83 U/L (35-105) 04/29/23 12:30 Troponin T Baseline 13 ng/L (0-10) H 04/29/23 12:30 Troponin T 120 Minute 15.13 ng/L (0-10) H 04/29/23 14:16 Delta Troponin T 2.13 ABS# (0-10) 04/29/23 14:16 Troponin T Hi Sens 6Hr 16.26 ng/L (0-10) H 04/29/23 18:08 Troponin T Hi Sens 6Hr Delta 3.26 ng/L (0-12) 04/29/23 18:08 C-Reactive Protein 4.2 mg/L (0.0-4.9) 04/30/23 03:20 Total Protein 6.3 g/dL (6.6-8.7) L 04/29/23 12:30 Albumin 4.4 g/dL (3.5-5.2) 04/29/23 12:30 Globulin 1.9 g/dL (1.3-4.6) 04/29/23 12:30 Vitamin B12 459 pg/mL (232-1245) 04/29/23 12:30 TSH 2.69 uIU/mL (0.27-4.20) 04/29/23 12:30 Urine Color Colorless (Yellow) 04/29/23 13:09 Urine Appearance Clear (CLEAR) 04/29/23 13:09 Urine pH 6 (5-7) 04/29/23 13:09 Ur Specific [place] 1.015 (1.005-1.030) 04/29/23 13:09 Urine Protein Neg (Negative) 04/29/23 13:09 Urine Glucose (UA) Norm (Normal) 04/29/23 13:09 Urine Ketones Negative (Negative) 04/29/23 13:09 Urine Blood Neg (Negative) 04/29/23 13:09 Urine Nitrate Negative (Negative) 04/29/23 13:09 Urine Bilirubin Neg (Negative) 04/29/23 13:09 Urine Urobilinogen Norm mg/dL (Negative) 04/29/23 13:09 Ur Leukocyte Esterase Negative (Negative) 04/29/23 13:09 CXR: My impression: Normal cardiac silhouette. No acute lung infiltrate. Hyperinflated lungs. EKG 1: My Interpretation: Sinus rhythm with a second-degree type II AV block. No acute ST-T changes. Telemetry shows intermittent type I and type II AV block's. Occasional high degree AV block also were noted Other data: Echocardiogram done today 1. Normal left ventricular size, systolic function with no ?regional wall motion abnormalities. Left ventricular ejection ?fraction is estimated at 70 %. Basal septal hypertrophy. ?2. Normal right ventricular size and systolic function. ?3. No prior similar studies to compare. A&P Assessment and plan (1) Symptomatic bradycardia: Patient appears to have second-degree type II and intermittent A-V dissociation on the monitor. Her symptoms are associated with the bradycardia. For further management of her condition, a permanent dual-chamber pacemaker evaluation would be appropriate. The risks and benefits of the procedure were discussed with the patient in detail. The risk of bleeding, hematoma, vascular injury, myocardial perforation, pericardial tamponade pneumothorax, infection, renal failure and other concomitant complications were explained in detail. The patient understood this well and consented to proceed. I may go ahead and schedule this procedure for tomorrow. (2) Second degree AV block, Mobitz type II: The EKG showed second-degree type II AV block. (3) Elevated white blood cell count: Most likely it is an acute phase reactant. Patient has no clinical evidence of any focus of infection. (4) Elevated blood pressure reading: The blood pressure was found to be elevated in the time of admission. Currently the blood pressure is in the low normal side. Plan Patient may be kept n.p.o. after midnight. Go ahead and schedule for the permanent pacemaker for tomorrow morning. Repeat a CBC in the morning Consult Attestations Medical Necessity Statement: Patient requires continued hospital stay for close monitoring and further management Coding Level of Care Code G0426 (50 min) Diagnoses Symptomatic bradycardia R00.1 Second degree AV block, Mobitz type II I44.1 Elevated white blood cell count D72.829 Elevated blood pressure reading R03.0
[2023-04-30] MEDS: DOPamine drip 400 MG/250 ML PREMIX 26.37 MG IV ×2 (15:43→23:59)
[2023-04-30] MEDS: ceFAZolin 1,000 MG in sodium chloride 0.9% (plus) 50 ML 100 MG IV (19:32)
[2023-05-01] VITALS (49 sets, daily range): BP systolic 70–171; BP diastolic 39–82; PULSE 41–84; RESP 8–24; TEMP 36.7; O2SAT 91–93
[2023-05-01 04:02] LABS: Basophils # 0.1 10^3/uL (0.0-0.1); Basophils % 0.5 %; Eosinophils # 0.1 10^3/uL (0.0-0.8); Eosinophils % 1.3 %; Hematocrit 49.4 % (37.0-47.0); Hemoglobin 15.9 g/dL (11.5-15.3); Lymphocytes # 1.3 10^3/uL (0.8-4.8); Lymphocytes % 12.1 %; Mean Corpuscular HGB Conc 32.2 g/dL (30.0-36.0); Mean Corpuscular Hemoglobin 29.7 pg (28.0-34.0); Mean Corpuscular Volume 92.2 fl (81-99); Mean Platelet Volume 10.8 fL (7.4-10.4); Monocytes # 0.6 10^3/uL (0.2-0.9); Monocytes % 5.5 %; Neutrophils # 8.62 10^3/uL (1.8-7.7); Neutrophils % 80.3 %; Nucleated Red Blood Cells % 0 %; Platelet Count 236 10^3/cmm (130-400); Red Blood Count 5.36 10^6/uL (4.1-5.3); Red Cell Distribution Width 14.6 % (12.1-15.1); White Blood Count 10.7 10^3/uL (4.0-10.0)
[2023-05-01 04:21] LABS: Blood Urea Nitrogen 21 mg/dL (8-23); Calcium 8.7 mg/dL (8.5-10.5); Carbon Dioxide 23 mmol/L (22-29); Chloride 106 mmol/L (98-107); Glucose 133 mg/dL (65-115); Osmolality Calculated 299 mOsm/kg (285-295); Sodium 142 mmol/L (136-145)
[2023-05-01] MEDS: sodium chloride 0.9% 1,000 ML 75 ML IV ×2 (04:38→17:51)
[2023-05-01] MEDS: amlodipine 10 mg Tablet PO (08:54)
[2023-05-01] MEDS: sennosides-docusate Tablet 1 TAB PO (08:54)
[2023-05-01] MEDS: lisinopril 20 mg Tablet PO (08:54)
--- NOTE | 2023-05-01 08:54 | PM.PN ---
Subjective Subjective: Patient is going for pacemaker placement by Dr. Mckeon today Blood pressure 100/58 mmHg, heart rate 68 on dopamine drip Patient is denying chest pain shortness of breath confusion Vitals/I&O/Wt Last Vital Signs Temp 98.4 F 04/30/23 15:15 Pulse 68 05/01/23 06:15 Resp 10 L 05/01/23 06:15 BP 124/58 05/01/23 06:15 Pulse Ox 91 04/30/23 20:00 O2 Del Method Room Air 04/30/23 20:00 04/30/23 05/01/23 05/01/23 22:59 06:59 14:59 Intake Total 380 / 578.912 267.992 / 846.904 Balance 380 / 578.912 267.992 / 846.904 Weight last 48 hrs Weight 70.307 kg Physical Exam Narrative: Signs of dehydration Awake and alert Hemodynamically stable On dopamine drip Currently on room air GCS 15 Nonfocal neuro exam Abdomen soft S1, S2 Data 05/01/23 03:35 05/01/23 03:35 A&P Assessment and plan (1) Hypertension: Qualifiers: Hypertension type: unspecified Qualified Code(s): I10 - Essential (primary) hypertension (2) Second degree AV block, Mobitz type II: (3) Symptomatic bradycardia: (4) Dizziness: (5) Bradycardia: Plan Ms. Umaña is going for pacemaker placement by Dr. Mckeon She does not have any active infection Leukocytosis could be stress leukemoid reaction White count is 10 Afebrile Echo unremarkable Asymptomatic however Dr. Mckeon commended dopamine drip yesterday Patient is n.p.o. Most likely she will be able to go home in next 24 to 30 hours Clinical signs of dehydration Continue IV fluids Full code N.p.o. Start cardiac diet after her procedure Start DVT prophylaxis after procedure Attestations Medical Necessity Statement*: Discharge over the weekend Diagnoses Hypertension I10 Hypertension type: unspecified Second degree AV block, Mobitz type II I44.1 Symptomatic bradycardia R00.1 Dizziness R42 Bradycardia R00.1
--- NOTE | 2023-05-01 09:55 | P.HPUD_ITS ---
Surgery/Procedure H&P Update DATE OF PROCEDURE: May 01, 2023 DATE H&P PERFORMED: 04/30/23 H&P UPDATE INFORMATION: I have reviewed H&P completed within last 30 days, I have examined patient prior to procedure and No changes to prior documentation PREOP DIAGNOSIS: Symptomatic bradycardia/second-degree type II AV block/intermittent high de PLANNED PROCEDURE: Transvenous permanent dual-chamber pacemaker insertion PATIENT REASSESSED PRIOR TO SEDATION, WITH NO CHANGE NOTED: Yes PHYSICAL EXAM: alert, oriented x 3, clear to auscultation bilaterally and regu lar rate & rhythm AIRWAY EVAL/ANESTHESIA PLAN: normal airway, see other exam findings, ASA III, Local Anesthesia, Risks, benefits & alternatives of sedation and/or procedure di scussed and Patient agrees to continue as planned
--- NOTE | 2023-05-01 11:57 | P.OP_ITS ---
Operative Report Date of procedure: May 01, 2023 Pre-op diagnosis: Preop Diagnosis Symptomatic bradycardia/second-degree type II AV block/intermittent high de Procedure: LOCATION: ICU PREOPERATIVE DIAGNOSES: Symptomatic bradycardia/second-degree type II AV block. POSTOPERATIVE DIAGNOSES: Same. COMPLICATIONS: None. ESTIMATED BLOOD LOSS: Around less than 5 milliliters. BRIEF HISTORY: This is an 88-year-old white female with no significant past medical history presents with complaints of dizziness/weakness ,progressively getting worse over the last 1 month. She was found to have second-degree type II AV block on the EKG. Telemetry showed intermittent high degree AV block as well. For further management of her condition, a permanent pacemaker insertion was requested A dual chamber permanent pacemaker implantation was recommended for AV synchrony and symptom relief The procedure was explained to the patient in detail with the risks and benefits. The risks of bleeding, hematoma, vascular injury, infection, pneumothorax, myocardial perforation and other concomitant complications were explained in detail, which the patient understood well and consented to proceed. PROCEDURE DESCRIPTION: The patient was brought to the Cardiac Catheterization Lab. The left and the right side of the neck and the subclavian area were cleaned and draped in a sterile fashion. 1% Xylocaine was used as the local anesthetic agent. [Left] subclavian venogram was performed by injecting 20 milliliters of Omnipaque through the left antecubital vein. A [left] subclavian venous access was obtained using a micropuncture needle system, under venographic guidance. . A two-inch long incision was made 2.0 centimeters below the midclavicular region. By sharp and blunt dissection, a pacemaker pocket was made. A second venous access was obtained using another micropuncture needle system. Over the first guidewire, a 7-English venous sheath with dilator was advanced. The venous dilator and the guidewire were taken out. A screw-in ventricular lead was advanced through the venous sheath and was positioned towards the right ventricle. Under fluoroscopic guidance, the ventricular lead was positioned toward the right ventricular apex. Good pacing and sensing thresholds were obtained. The lead was secured to the endocardium by advancing the helix. The stability of the lead was tested by gentle twisting movements and also by asking the patient to take some deep breaths and cough. The venous sheath was peeled off, at this time. The lead was secured to the pectoralis fascia, by suturing with 1-0 Surgilon. Over the second guidewire, another 7- English venous sheath with dilator was advanced. The dilator and the guidewire were taken out. Under fluoroscopic guidance, an atrial lead (Medtronic), was a dvanced and positioned toward the right atrium. The lead was positioned in the right atrial appendage. Good pacing and sensing thresholds were obtained. The lead was secured to the endocardium by advancing the helix. Stability of the lead was tested by gentle twisting movements and also by asking the patient to take some deep breaths and cough. The venous sheath was peeled off, at this time. The lead was secured to the pectoralis fascia by suturing with 0-Surgilon. The pacemaker pocket was copiously irrigated with vancomycin solution. Complete hemostasis was achieved. Sponge counts were confirmed. The leads were attached to a Medtronic generator. The leads were positioned behind the generator and the generator was attached to the pectoralis fascia by suturing with 0-Surgilon. The pocket was closed in layers. Skin was approximated using 4-0 Vicryl. IMPLANTED DEVICES: ATRIAL LEAD: Model number: 5076/45 Serial number: [id number] Make: Medtronic VENTRICULAR LEAD: Model number: 5076/52 Serial number: [id number] Make: Medtronic GENERATOR Brand: Lucille XT DR LANDIN LarissaMikel Model number: [id number] Serial number: [id number] Make: Medtronic IMPLANTATION DATA: With the pacing system analyzer, the R wave sensing was 8.75 millivolts with a lead impedance of 608 and a pacing threshold was 0.5 volts at 0.4 milliseconds. In the atrium, the sensing was 1.75 millivolts with a lead impedance of 608 ohms and a pacing threshold was 0.4 volts at 0.4 milliseconds. Through the device, the R-wave sensing was 9.9 millivolts with a lead impedance of 627 and a pacing threshold was 0.5 volts at 0.4 milliseconds. The atrial sensing was 4.0 millivolts with a lead impedance of 532 ohms and a pacing threshold of 0.5 volts at 0.4 milliseconds. The pacemaker was set for DDDR mode with upper rate of 130 and a lower rate of 60. The more suture was turned on A pressure dressing was applied over the pacemaker site. The patient was transferred to the Medical Floor in stable condition. A chest x-ray was ordered to confirm the lead position and also to rule out any pneumothorax.
--- NOTE | 2023-05-01 12:10 | PC.NURSE ---
Pt back from maintenance shop laborer at 1200.
[2023-05-01] MEDS: ceFAZolin 2,000 MG in sodium chloride 0.9% (plus) 50 ML 100 MG IV (17:52)
[2023-05-02] MEDS: ceFAZolin 2,000 MG in sodium chloride 0.9% (plus) 50 ML 100 MG IV ×2 (01:44→09:26)
[2023-05-02 04:36] LABS: Basophils % 0.4 %; Eosinophils # 0.2 10^3/uL (0.0-0.8); Eosinophils % 1.9 %; Hematocrit 41.6 % (37.0-47.0); Hemoglobin 13.5 g/dL (11.5-15.3); Lymphocytes # 1.1 10^3/uL (0.8-4.8); Mean Corpuscular HGB Conc 32.5 g/dL (30.0-36.0); Mean Corpuscular Hemoglobin 29.8 pg (28.0-34.0); Mean Corpuscular Volume 91.8 fl (81-99); Mean Platelet Volume 11.1 fL (7.4-10.4); Monocytes # 0.7 10^3/uL (0.2-0.9); Neutrophils # 6.34 10^3/uL (1.8-7.7); Neutrophils % 76.5 %; Nucleated Red Blood Cells % 0 %; Platelet Count 186 10^3/cmm (130-400); Red Blood Count 4.53 10^6/uL (4.1-5.3); Red Cell Distribution Width 14.8 % (12.1-15.1); White Blood Count 8.3 10^3/uL (4.0-10.0)
[2023-05-02 04:52] LABS: Anion Gap 13.2 (5-19); Blood Urea Nitrogen 21 mg/dL (8-23); Calcium 8.3 mg/dL (8.5-10.5); Carbon Dioxide 25 mmol/L (22-29); Chloride 111 mmol/L (98-107); Glucose 95 mg/dL (65-115); Osmolality Calculated 303 mOsm/kg (285-295); Potassium 4.2 mmol/L (3.5-5.1); Sodium 145 mmol/L (136-145)
[2023-05-02 06:00] VITALS: PULSE 91
--- NOTE | 2023-05-02 06:00 | ECG_ITS ---
[facility] Test Date: 2023-05-02 Pat Name: Bradni Umaña Department: Room: [facility] Gender: Female [employer]: : [id number] Requested By: Fredy Mckeon Order Number: [id number] Martha MD: Fredy Mckeon M.D. Measurements Intervals [place] Rate: 75 P: 15 IA: 184 QRS: -15 QRSD: 99 T: 29 QT: 401 QTc: 451 Interpretive Statements SINUS RHYTHM Compared to ECG 04/29/2023 15:53:16 Sinus bradycardia no longer present ST (T wave) deviation no longer present Electronically Signed On 05-02-2023 15:56:50 CDT by Fredy Mckeon M.D. [id number]
[2023-05-02 06:35] LABS: Blood Gas Tidal Volume NO
--- NOTE | 2023-05-02 07:36 | PM.PN ---
Subjective Subjective: The patient is feeling better. Telemetry shows sinus rhythm/demand AV pacing. No chest pain or shortness of breath. No fever or chills. Medications: Medication Review Details: Current Medications Acetaminophen (Acetaminophen 500 Mg Tablet) 500 mg PO Q4H PRN PRN Reason: fever Albuterol/Ipratropium (Ipratropium-Albuterol 3 Ml Neb) 3 ml INHALATION Q6H.RESP PRN PRN Reason: SHORTNESS OF BREATH Amlodipine Besylate (Amlodipine 10 Mg Tablet) 10 mg PO DAILY [facility] Last Admin: 05/01/23 08:54 Dose: 10 mg Dopamine HCl/Dextrose (Intropin Drip) 400 mg in 250 mls @ 13.183 mls/hr IV CONT PRN; Protocol PRN Reason: symptomatic bradycardia Last Admin: 04/30/23 23:59 Dose: 10 mcg/kg/min, 26.37 mls/hr Sodium Chloride (Sodium Chloride 0.9%) 1,000 mls @ 75 mls/hr IV .[id number] [facility] Last Admin: 05/01/23 17:51 Dose: 75 mls/hr Sodium Chloride (Sodium Chloride 0.9%) 1,000 mls @ 75 mls/hr IV .[id number] [facility] Last Admin: 05/02/23 01:08 Dose: Not Given Cefazolin Sodium 2,000 mg/ (Sodium Chloride) 50 mls @ 100 mls/hr IV Q8H [facility]; Protocol Stop: 05/02/23 10:29 Last Infusion: 05/02/23 02:42 Dose: Infused Lisinopril (Lisinopril 20 Mg Tablet) 20 mg PO DAILY [facility] Last Admin: 05/01/23 08:54 Dose: 20 mg Morphine Sulfate (Morphine Ir 15 Mg Tablet) 15 mg PO Q6H PRN PRN Reason: pAIN Ondansetron HCl (Ondansetron 2 Mg/Ml Sdv 2 Ml) 4 mg IVP Q6H PRN PRN Reason: NAUSEA AND VOMITING Last Admin: 04/30/23 05:57 Dose: 4 mg Senna/Docusate Sodium (Sennosides-Docusate Tablet) 1 tab PO DAILY [facility] Last Admin: 05/01/23 08:54 Dose: 1 tab Vitals/I&O/Wt Last Vital Signs Temp 98.1 F 05/01/23 07:00 Pulse 91 05/02/23 06:00 Resp 18 05/01/23 20:00 BP 89/59 05/01/23 13:15 Pulse Ox 93 05/01/23 20:00 O2 Del Method Room Air 04/30/23 20:00 05/01/23 05/02/23 05/02/23 22:59 06:59 14:59 Intake Total 1281.25 / 1281.25 50 / 1331.25 Output Total 550 / 550 150 / 700 Balance 731.25 / 731.25 -100 / 631.25 Weight last 48 hrs Weight 159 lb Physical Exam Narrative: GENERAL: The patient is alert and oriented times three. Not in any acute distress. HEENT: No significant pallor, icterus or lymphadenopathy.Oral cavity: There are no mucous membrane lesions. NECK: Trachea appears to be central. No masses noted. No JVD or thyromegaly appreciated. RESPIRATORY: Chest is symmetrical. The pacemaker incision site has no hematoma bleeding. No intercostals muscle retraction or any accessory muscle activation. There is no chest wall tenderness. Breath sounds are heard bilaterally. No rales or rhonchi heard. No evidence of any consolidation. BREASTS: Deferred. HEART: The heart sounds are normal. No S3 or S4. No significant murmurs. No pericardial rub ABDOMEN: No vessel pulsations or distention. No tenderness. No organomegaly appreciated. Bowel sounds are normally heard. : Deferred. RECTAL: Deferred. LYMPHATIC: No lymphadenopathy noted in the neck. EXTREMITIES: No edema or cyanosis. No clubbing. MUSCULOSKELETAL: No acute joint deformities or swelling SKIN: There are no significant rashes or ecchymosis NEUROPSYCHIATRIC: The patient is alert and oriented x3. Appears to be in a good mood. No tremors or rigidity noted. Data 05/02/23 03:44 05/02/23 03:44 Other Labs: Laboratory Last Values WBC 8.3 10^3/uL (4.0-10.0) 05/02/23 03:44 RBC 4.53 10^6/uL (4.1-5.3) 05/02/23 03:44 Hgb 13.5 g/dL (11.5-15.3) 05/02/23 03:44 Hct 41.6 % (37.0-47.0) 05/02/23 03:44 MCV 91.8 fl (81-99) 05/02/23 03:44 MCH 29.8 pg (28.0-34.0) 05/02/23 03:44 MCHC 32.5 g/dL (30.0-36.0) 05/02/23 03:44 RDW 14.8 % (12.1-15.1) 05/02/23 03:44 Plt Count 186 10^3/cmm (130-400) 05/02/23 03:44 MPV 11.1 fL (7.4-10.4) H 05/02/23 03:44 Neut % (Auto) 76.5 % 05/02/23 03:44 Lymph % (Auto) 13.0 % 05/02/23 03:44 [place] % (Auto) 8.0 % 05/02/23 03:44 Eos % (Auto) 1.9 % 05/02/23 03:44 Baso % (Auto) 0.4 % 05/02/23 03:44 Neut # (Auto) 6.34 10^3/uL (1.8-7.7) 05/02/23 03:44 Lymph # (Auto) 1.1 10^3/uL (0.8-4.8) 05/02/23 03:44 [place] # (Auto) 0.7 10^3/uL (0.2-0.9) 05/02/23 03:44 Eos # (Auto) 0.2 10^3/uL (0.0-0.8) 05/02/23 03:44 Baso # (Auto) 0.0 10^3/uL (0.0-0.1) 05/02/23 03:44 Nucleated RBC % (auto) 0 % 05/02/23 03:44 Nucleated RBCs # 0.0 /100WBC 05/02/23 03:44 D-Dimer 0.58 ug/mIFEU (0-0.59) 04/29/23 12:30 Specimen Type Baccarat Dealer 05/02/23 06:10 Sample Site Baccarat Dealer 05/02/23 06:10 ABG pH Baccarat Dealer 05/02/23 06:10 ABG pCO2 Baccarat Dealer 05/02/23 06:10 ABG pO2 Baccarat Dealer 05/02/23 06:10 ABG HCO3 Baccarat Dealer 05/02/23 06:10 ABG O2 Saturation Baccarat Dealer 05/02/23 06:10 ABG Base Excess Baccarat Dealer 05/02/23 06:10 Heath Test Baccarat Dealer 05/02/23 06:10 A-a O2 Gradient Baccarat Dealer 05/02/23 06:10 Hematocrit Baccarat Dealer 05/02/23 06:10 Hgb O2 Saturation Baccarat Dealer 05/02/23 06:10 Carboxyhemoglobin Baccarat Dealer 05/02/23 06:10 Methemoglobin Baccarat Dealer 05/02/23 06:10 Total Hemoglobin Baccarat Dealer 05/02/23 06:10 Sodium Baccarat Dealer 05/02/23 06:10 Potassium Baccarat Dealer 05/02/23 06:10 Glucose Baccarat Dealer 05/02/23 06:10 Ionized Calcium Baccarat Dealer 05/02/23 06:10 O2 Delivery Device Baccarat Dealer 05/02/23 06:10 FiO2 Baccarat Dealer 05/02/23 06:10 Tidal Volume No 05/02/23 06:10 PEEP 10.0 cmH20 05/02/23 06:10 Manager Of Marketing ID Baccarat Dealer 05/02/23 06:10 Sodium 145 mmol/L (136-145) 05/02/23 03:44 Potassium 4.2 mmol/L (3.5-5.1) 05/02/23 03:44 Chloride 111 mmol/L (98-107) H 05/02/23 03:44 Carbon Dioxide 25 mmol/L (22-29) 05/02/23 03:44 Anion Gap 13.2 (5-19) 05/02/23 03:44 BUN 21 mg/dL (8-23) 05/02/23 03:44 Creatinine 0.9 mg/dL (0.5-0.9) 05/02/23 03:44 GFR Calculation Not Reportable 05/02/23 03:44 Glucose 95 mg/dL (65-115) 05/02/23 03:44 Estimat Average Glucose 114 04/29/23 12:30 Hemoglobin A1c 5.6 % (4.0-6.0) 04/29/23 12:30 Calculated Osmolality 303 mOsm/kg (285-295) H 05/02/23 03:44 Calcium 8.3 mg/dL (8.5-10.5) L 05/02/23 03:44 Phosphorus 3.0 mg/dL (2.5-4.5) 04/30/23 03:20 Magnesium 2.3 mg/dL (1.7-2.3) 04/30/23 03:20 Total Bilirubin 0.3 mg/dL (0.15-1.2) 04/29/23 12:30 AST 14 U/L (0-32) 04/29/23 12:30 ALT 12 U/L (0-33) 04/29/23 12:30 Alkaline Phosphatase 83 U/L (35-105) 04/29/23 12:30 Troponin T Baseline 13 ng/L (0-10) H 04/29/23 12:30 Troponin T 120 Minute 15.13 ng/L (0-10) H 04/29/23 14:16 Delta Troponin T 2.13 ABS# (0-10) 04/29/23 14:16 Troponin T Hi Sens 6Hr 16.26 ng/L (0-10) H 04/29/23 18:08 Troponin T Hi Sens 6Hr Delta 3.26 ng/L (0-12) 04/29/23 18:08 C-Reactive Protein 4.2 mg/L (0.0-4.9) 04/30/23 03:20 Total Protein 6.3 g/dL (6.6-8.7) L 04/29/23 12:30 Albumin 4.4 g/dL (3.5-5.2) 04/29/23 12:30 Globulin 1.9 g/dL (1.3-4.6) 04/29/23 12:30 Vitamin B12 459 pg/mL (232-1245) 04/29/23 12:30 TSH 2.69 uIU/mL (0.27-4.20) 04/29/23 12:30 Urine Color Colorless (Yellow) 04/29/23 13:09 Urine Appearance Clear (CLEAR) 04/29/23 13:09 Urine pH 6 (5-7) 04/29/23 13:09 Ur Specific [place] 1.015 (1.005-1.030) 04/29/23 13:09 Urine Protein Neg (Negative) 04/29/23 13:09 Urine Glucose (UA) Norm (Normal) 04/29/23 13:09 Urine Ketones Negative (Negative) 04/29/23 13:09 Urine Blood Neg (Negative) 04/29/23 13:09 Urine Nitrate Negative (Negative) 04/29/23 13:09 Urine Bilirubin Neg (Negative) 04/29/23 13:09 Urine Urobilinogen Norm mg/dL (Negative) 04/29/23 13:09 Ur Leukocyte Esterase Negative (Negative) 04/29/23 13:09 A&P Assessment and plan (1) Symptomatic bradycardia: Patient is status post permanent dual-chamber pacemaker insertion. Currently seems to be stable. The pacemaker function was found to be appropriate. Chest x-ray shows appropriate pacing of the pacemaker leads with no evidence of any complications. (2) Elevated white blood cell count: Most likely it is an acute phase reactant. Patient has no clinical evidence of any focus of infection. Currently the white cell count is in the normal range. (3) Elevated blood pressure reading: The blood pressure was found to be elevated in the time of admission. Currently the blood pressure is in the low normal side. May continue on the current measures. Plan If the patient continues remain stable, may be discharged home today. Keflex 500 mg p.o. every 6 hours for 5 days. Multivitamin 1 tablet daily for 2 weeks Need to [facility] for a pacemaker check and wound check I will be seeing him in the office in 1 month. Minimize the movements of the left shoulder to 45 degrees. Avoid any weight lifting of more than 5 pounds with the left hand for the next 6 weeks No weightbearing in the left elbow Take the antibiotics and multivitamins as prescribed Attestations Medical Necessity Statement*: Possible discharge home today Coding Level of Care Code 25935 Diagnoses Symptomatic bradycardia R00.1 Elevated white blood cell count D72.829 Elevated blood pressure reading R03.0
--- NOTE | 2023-05-02 07:40 | XRR_ITS ---
PROCEDURE INFORMATION: Exam: XR Chest Exam date and time: 05/02/2023 6:57 AM Age: 88 years old Clinical indication: Device placement; Cardiac pacemaker lead placement or adjustment; Prior surgery; Surgery date: Post-operative (0-2 days); Additional info: Post pacemaker, please have all the external wires/ leads off the field of TECHNIQUE: Imaging protocol: Radiologic exam of the chest. Views: 1 view. COMPARISON: CR XR chest 1V portable [id number] 04/29/2023 11:40 AM FINDINGS: Tubes, catheters and devices: There has been interval placement of a permanent pacemaker which overlies and obscures the left lateral chest and axilla intact atrial and ventricular wire leads. Lungs: Unremarkable. No consolidation. Pleural spaces: Unremarkable. No pleural effusion. No pneumothorax. Heart/Mediastinum: Unremarkable. No cardiomegaly. Bones/joints: Unremarkable. XR/XR chest 1V portable [id number] IMPRESSION: Pacemaker in place as described. Otherwise no acute cardiopulmonary disease.
[2023-05-02 08:00] VITALS: PULSE 78; RESP 16; O2SAT 92
[2023-05-02] MEDS: lisinopril 20 mg Tablet PO (09:24)
[2023-05-02] MEDS: sennosides-docusate Tablet 1 TAB PO (09:24)
[2023-05-02] MEDS: amlodipine 10 mg Tablet PO (09:24)
--- NOTE | 2023-05-02 10:08 | PM.DCS ---
Discharge Providers Date of Admission: 04/29/23 17:36 Date of Discharge: May 02, 2023 Attending Provider at Admission: Adrienne Zhou MD Attending Provider at Discharge: Adrienne Zhou MD Primary Care Provider: James Ortez DO Diagnoses at Discharge Discharge Diagnosis (1) Symptomatic bradycardia: Status: Acute (2) Second degree AV block, Mobitz type II: Status: Acute (3) Elevated white blood cell count: Status: Acute (4) Elevated blood pressure reading: Status: Acute Reason for Visit Reason for Visit: sent by marshall b/c slow pulse, dizzy, Hospital Course Hospital Course 88-year female who was admitted for management evaluation of symptomatic bradycardia, she was diagnosed with high degree AV block, cardiology was consulted, Dr. Mckeon placed a pacemaker on 05/01 [employer]. Pacemaker evaluation was satisfactory. Patient was diagnosed with hypertension during hospitalization. She was given will amlodipine and lisinopril. She needs to be followed up closely because of recent diagnosis of bradycardia, pacemaker placement and hypertension, PCP follow-up within next 3 to [address] Mckeon within 2 weeks. She will get Keflex as prophylactic regimen for next 10 days. Patient is being discharged with stable vitals. She is able to eat, walk around without any difficulty Physical Exam Narrative: GCS 15 Awake and alert S1, S2 Abdomen soft Pleasant and cooperative Nonfocal neuro exam Discharge Data Studies Completed and Pending Completed Studies During Hospitalization Category Date Time Status CXRP [XR chest 1V portable [id number]] Routine Exams 05/02/23 07:40 Completed XR chest 1V portable [id number] Stat Exams 04/29/23 11:16 Completed CV. echo complete* [id number] Routine Ultrasound 04/29/23 18:59 Completed Pending at discharge Category Date Time Status SURVEILLANCE SENSOR OFFICER request for service Routine Exams 05/01/23 08:06 Taken Radiology Impressions Chest X-Ray 05/02/23 07:40 IMPRESSION: Pacemaker in place as described. Otherwise no acute cardiopulmonary disease. Laboratory Results WBC 8.3 10^3/uL (4.0-10.0) 05/02/23 03:44 RBC 4.53 10^6/uL (4.1-5.3) 05/02/23 03:44 Hgb 13.5 g/dL (11.5-15.3) 05/02/23 03:44 Hct 41.6 % (37.0-47.0) 05/02/23 03:44 MCV 91.8 fl (81-99) 05/02/23 03:44 MCH 29.8 pg (28.0-34.0) 05/02/23 03:44 MCHC 32.5 g/dL (30.0-36.0) 05/02/23 03:44 RDW 14.8 % (12.1-15.1) 05/02/23 03:44 Plt Count 186 10^3/cmm (130-400) 05/02/23 03:44 MPV 11.1 fL (7.4-10.4) H 05/02/23 03:44 Neut % (Auto) 76.5 % 05/02/23 03:44 Lymph % (Auto) 13.0 % 05/02/23 03:44 [place] % (Auto) 8.0 % 05/02/23 03:44 Eos % (Auto) 1.9 % 05/02/23 03:44 Baso % (Auto) 0.4 % 05/02/23 03:44 Neut # (Auto) 6.34 10^3/uL (1.8-7.7) 05/02/23 03:44 Lymph # (Auto) 1.1 10^3/uL (0.8-4.8) 05/02/23 03:44 [place] # (Auto) 0.7 10^3/uL (0.2-0.9) 05/02/23 03:44 Eos # (Auto) 0.2 10^3/uL (0.0-0.8) 05/02/23 03:44 Baso # (Auto) 0.0 10^3/uL (0.0-0.1) 05/02/23 03:44 Nucleated RBC % (auto) 0 % 05/02/23 03:44 Nucleated RBCs # 0.0 /100WBC 05/02/23 03:44 D-Dimer 0.58 ug/mIFEU (0-0.59) 04/29/23 12:30 Specimen Type Cone Classifier Tender 05/02/23 06:10 Sample Site Cone Classifier Tender 05/02/23 06:10 ABG pH Cone Classifier Tender 05/02/23 06:10 ABG pCO2 Cone Classifier Tender 05/02/23 06:10 ABG pO2 Cone Classifier Tender 05/02/23 06:10 ABG HCO3 Cone Classifier Tender 05/02/23 06:10 ABG O2 Saturation Cone Classifier Tender 05/02/23 06:10 ABG Base Excess Cone Classifier Tender 05/02/23 06:10 Heath Test Cone Classifier Tender 05/02/23 06:10 A-a O2 Gradient Cone Classifier Tender 05/02/23 06:10 Hematocrit Cone Classifier Tender 05/02/23 06:10 Hgb O2 Saturation Cone Classifier Tender 05/02/23 06:10 Carboxyhemoglobin Cone Classifier Tender 05/02/23 06:10 Methemoglobin Cone Classifier Tender 05/02/23 06:10 Total Hemoglobin Cone Classifier Tender 05/02/23 06:10 Sodium Cone Classifier Tender 05/02/23 06:10 Potassium Cone Classifier Tender 05/02/23 06:10 Glucose Cone Classifier Tender 05/02/23 06:10 Ionized Calcium Cone Classifier Tender 05/02/23 06:10 O2 Delivery Device Cone Classifier Tender 05/02/23 06:10 FiO2 Cone Classifier Tender 05/02/23 06:10 Tidal Volume No 05/02/23 06:10 PEEP 10.0 cmH20 05/02/23 06:10 Portrait Studio Photographer ID Cone Classifier Tender 05/02/23 06:10 Sodium 145 mmol/L (136-145) 05/02/23 03:44 Potassium 4.2 mmol/L (3.5-5.1) 05/02/23 03:44 Chloride 111 mmol/L (98-107) H 05/02/23 03:44 Carbon Dioxide 25 mmol/L (22-29) 05/02/23 03:44 Anion Gap 13.2 (5-19) 05/02/23 03:44 BUN 21 mg/dL (8-23) 05/02/23 03:44 Creatinine 0.9 mg/dL (0.5-0.9) 05/02/23 03:44 GFR Calculation Not Reportable 05/02/23 03:44 Glucose 95 mg/dL (65-115) 05/02/23 03:44 Estimat Average Glucose 114 04/29/23 12:30 Hemoglobin A1c 5.6 % (4.0-6.0) 04/29/23 12:30 Calculated Osmolality 303 mOsm/kg (285-295) H 05/02/23 03:44 Calcium 8.3 mg/dL (8.5-10.5) L 05/02/23 03:44 Phosphorus 3.0 mg/dL (2.5-4.5) 04/30/23 03:20 Magnesium 2.3 mg/dL (1.7-2.3) 04/30/23 03:20 Total Bilirubin 0.3 mg/dL (0.15-1.2) 04/29/23 12:30 AST 14 U/L (0-32) 04/29/23 12:30 ALT 12 U/L (0-33) 04/29/23 12:30 Alkaline Phosphatase 83 U/L (35-105) 04/29/23 12:30 Troponin T Baseline 13 ng/L (0-10) H 04/29/23 12:30 Troponin T 120 Minute 15.13 ng/L (0-10) H 04/29/23 14:16 Delta Troponin T 2.13 ABS# (0-10) 04/29/23 14:16 Troponin T Hi Sens 6Hr 16.26 ng/L (0-10) H 04/29/23 18:08 Troponin T Hi Sens 6Hr Delta 3.26 ng/L (0-12) 04/29/23 18:08 C-Reactive Protein 4.2 mg/L (0.0-4.9) 04/30/23 03:20 Total Protein 6.3 g/dL (6.6-8.7) L 04/29/23 12:30 Albumin 4.4 g/dL (3.5-5.2) 04/29/23 12:30 Globulin 1.9 g/dL (1.3-4.6) 04/29/23 12:30 Vitamin B12 459 pg/mL (232-1245) 04/29/23 12:30 TSH 2.69 uIU/mL (0.27-4.20) 04/29/23 12:30 Urine Color Colorless (Yellow) 04/29/23 13:09 Urine Appearance Clear (CLEAR) 04/29/23 13:09 Urine pH 6 (5-7) 04/29/23 13:09 Ur Specific [place] 1.015 (1.005-1.030) 04/29/23 13:09 Urine Protein Neg (Negative) 04/29/23 13:09 Urine Glucose (UA) Norm (Normal) 04/29/23 13:09 Urine Ketones Negative (Negative) 04/29/23 13:09 Urine Blood Neg (Negative) 04/29/23 13:09 Urine Nitrate Negative (Negative) 04/29/23 13:09 Urine Bilirubin Neg (Negative) 04/29/23 13:09 Urine Urobilinogen Norm mg/dL (Negative) 04/29/23 13:09 Ur Leukocyte Esterase Negative (Negative) 04/29/23 13:09 Vitals Last Vital Signs Temp 98.1 F 05/01/23 07:00 Pulse 78 05/02/23 08:00 Resp 16 05/02/23 08:00 BP 89/59 05/01/23 13:15 Pulse Ox 92 05/02/23 08:00 O2 Del Method Room Air 05/02/23 08:00 Discharge Plan Discharge Patient Disposition: Home Condition: Stable Prescriptions: New cephalexin 500 mg tablet 500 mg PO BID 10 Days Qty: 20 0RF lisinopril 20 mg Tablet 20 mg PO DAILY Qty: 30 1RF amlodipine 10 mg Tablet 10 mg PO DAILY Qty: 30 2RF Continued multivitamin Tablet 1 tab PO DAILY PRN (Reason: unknown) Magnesium Citrate Powder 1 tsp PO BEDTIME Discharge Orders: Discharge Order (Routine); Ordered 05/02/23 Ordered By: Adrienne Zhou Referrals: Fredy Mckeon MD [Physician] - 7-10 days James Ortez DO [Primary Care Provider] - 1-3 days Discharge Diet: Cardiac Patient Instructions: Opioid Safety Activity Restrictions/Additional Instructions: Keflex 500 mg p.o. every 6 hours for 5 days. Multivitamin 1 tablet daily for 2 weeks Keep the pacemaker insertion site clean and dry Follow the post pacemaker instructions [facility] for a pacemaker check and wound check I will be seeing him in the office in 1 month. Minimize the movements of the left shoulder to 45 degrees. Avoid any weight lifting of more than 5 pounds with the left hand for the next 6 weeks No weight bearing in the left elbow Take the antibiotics and multivitamins as prescribed Discharge Attestations Time Spent in Discharge Care*: greater than 30 min Quality Metrics Clinical Quality Measures [ No reported AMI, CVA or VTE this stay] Coding Level of Care Code Acute Code for Chg Fwd Diagnoses Symptomatic bradycardia R00.1 Second degree AV block, Mobitz type II I44.1 Elevated white blood cell count D72.829 Elevated blood pressure reading R03.0
--- NOTE | 2023-05-02 10:12 | PC.SOCIAL ---
IMM update IMM updated with patient. Copy Pg 2 provided. Verbalized an understanding. Initialled, dated, timed, and placed in chart.
== END 2023-05-02 12:14 | disposition home or self-care (01) | DRG 244 ==
LOC: ER 16:43 → CSU 17:36 → ICU 18:38
PROVIDERS: Emergency Medicine; Internal Medicine Cardiovascular Disease; Admitting Provider Internal Medicine; Emergency Provider Emergency Medicine; PCP Family Medicine; Visit Provider Internal Medicine
PROC: 0JH606Z Insertion of Pacemaker, Dual Chamber into Chest Subcutaneous Tissue and Fascia, Open Approach (ICD-10-PCS; principal; 2023-05-01 10:00)
DX: I44.1 Atrioventricular block, second degree (principal); I10 Essential (primary) hypertension; R00.1 Bradycardia, unspecified
CPT/HCPCS: 33208; 36415; 71045; 80048; 80051; 80053; 80061; 81003; 82330; 82607; 82805; 83036; 83735; 84100; 84443; 84484; 85025; 85378; 86140; 93005; 93306; 96361; 96365; 96367; 96376; 97165; 99152; 99153; 99285; A4216; C1769; C1779; C1786; C1894; J0690; J1265; J2250; J2405; J3010; J3370; J7030; J7050; Q9967

== ENCOUNTER → 2023-05-12 15:15 | Outpatient (BNVA) | payer MEDICARE, SELFPAY | PROVIDERS: PCP Family Medicine; Visit Provider Nurse Practitioner Family | DX: Z95.0 Presence of cardiac pacemaker (principal); I10 Essential (primary) hypertension | CPT/HCPCS: 93288; 99214 ==

== ENCOUNTER → 2023-08-04 11:03 | Outpatient (BNVA) | payer MEDICARE, SELFPAY | PROVIDERS: PCP Family Medicine; Visit Provider Internal Medicine Cardiovascular Disease | DX: Z95.0 Presence of cardiac pacemaker (principal); I10 Essential (primary) hypertension; R00.1 Bradycardia, unspecified; I44.1 Atrioventricular block, second degree | CPT/HCPCS: 99214 ==

== ENCOUNTER → 2023-10-07 16:06 | Outpatient (BNVA) | payer MEDICARE, SELFPAY | PROVIDERS: PCP Family Medicine; Visit Provider Internal Medicine Cardiovascular Disease | DX: Z45.010 Encounter for checking and testing of cardiac pacemaker pulse generator [battery] (principal) | CPT/HCPCS: 93296 ==

== ENCOUNTER → 2023-12-21 13:36 | Outpatient (BNVA) | payer MEDICARE, SELFPAY | PROVIDERS: PCP Family Medicine; Visit Provider Family Medicine | DX: Z13.6 Encounter for screening for cardiovascular disorders (principal); I10 Essential (primary) hypertension; Z95.0 Presence of cardiac pacemaker | CPT/HCPCS: 80053; 80061; 85025 ==

== ENCOUNTER → 2023-12-25 15:33 | Outpatient (BNVA) | payer MEDICARE, SELFPAY | PROVIDERS: PCP Family Medicine; Visit Provider Internal Medicine Cardiovascular Disease | DX: Z45.010 Encounter for checking and testing of cardiac pacemaker pulse generator [battery] (principal) | CPT/HCPCS: 93296 ==

== ENCOUNTER → 2024-01-19 08:54 | Outpatient (BNVA) | payer MEDICARE, SELFPAY | PROVIDERS: PCP Family Medicine; Visit Provider Family Medicine | DX: N28.9 Disorder of kidney and ureter, unspecified (principal) | CPT/HCPCS: 80048 ==

== ENCOUNTER → 2024-03-24 11:54 | Outpatient (BNVA) | payer MEDICARE, SELFPAY | PROVIDERS: PCP Family Medicine; Visit Provider Internal Medicine Cardiovascular Disease | DX: Z45.010 Encounter for checking and testing of cardiac pacemaker pulse generator [battery] (principal) | CPT/HCPCS: 93296 ==

== ENCOUNTER → 2024-04-14 15:53 | Outpatient (BNVA) | payer MEDICARE, SELFPAY | PROVIDERS: PCP Family Medicine; Visit Provider Internal Medicine Cardiovascular Disease | DX: Z95.0 Presence of cardiac pacemaker (principal) | CPT/HCPCS: 71045 ==

== ENCOUNTER → 2024-06-27 11:23 | Outpatient (BNVA) | payer MEDICARE, SELFPAY | PROVIDERS: PCP Family Medicine; Visit Provider Family Medicine | DX: N28.9 Disorder of kidney and ureter, unspecified (principal) | CPT/HCPCS: 80048 ==

== ENCOUNTER → 2024-09-15 09:06 | Outpatient (BNVA) | payer MEDICARE, SELFPAY | PROVIDERS: PCP Family Medicine; Visit Provider Family Medicine | DX: N28.9 Disorder of kidney and ureter, unspecified (principal) | CPT/HCPCS: 80048 ==

== ENCOUNTER → 2024-10-13 10:59 | Outpatient (BNVA) | payer MEDICARE, SELFPAY | PROVIDERS: PCP Family Medicine; Visit Provider Nurse Practitioner Family | DX: I11.0 Hypertensive heart disease with heart failure (principal); I50.9 Heart failure, unspecified; Z95.0 Presence of cardiac pacemaker; I47.19 Other supraventricular tachycardia | CPT/HCPCS: 99214 ==

== ENCOUNTER → 2024-10-19 09:00 | Outpatient (BNVA) | payer MEDICARE, SELFPAY | PROVIDERS: PCP Family Medicine; Visit Provider Internal Medicine Cardiovascular Disease | DX: Z45.010 Encounter for checking and testing of cardiac pacemaker pulse generator [battery] (principal) | CPT/HCPCS: 93296 ==

== ENCOUNTER → 2024-12-22 12:21 | Outpatient (BNVA) | payer MEDICARE, SELFPAY | PROVIDERS: PCP Family Medicine; Visit Provider Family Medicine | DX: N28.9 Disorder of kidney and ureter, unspecified (principal) | CPT/HCPCS: 80048 ==

== ENCOUNTER → 2025-01-18 10:34 | Outpatient (BNVA) | payer MEDICARE, SELFPAY | PROVIDERS: PCP Family Medicine; Visit Provider Internal Medicine Cardiovascular Disease | DX: Z45.018 Encounter for adjustment and management of other part of cardiac pacemaker (principal) | CPT/HCPCS: 93296 ==

== ENCOUNTER → 2025-06-22 09:46 | Outpatient (BNVA) | payer MEDICARE, SELFPAY | PROVIDERS: PCP Family Medicine; Visit Provider Family Medicine | DX: I10 Essential (primary) hypertension (principal); Z95.0 Presence of cardiac pacemaker; N28.9 Disorder of kidney and ureter, unspecified | CPT/HCPCS: 80053; 80061; 85025 ==

== ENCOUNTER → 2025-07-12 11:59 | Outpatient (BNVA) | payer MEDICARE, SELFPAY | PROVIDERS: PCP Family Medicine; Visit Provider Internal Medicine Cardiovascular Disease | DX: Z45.018 Encounter for adjustment and management of other part of cardiac pacemaker (principal) | CPT/HCPCS: 93296 ==

== ENCOUNTER → 2025-09-18 14:41 | Outpatient (BNVA) | payer MEDICARE, SELFPAY | PROVIDERS: PCP Family Medicine; Visit Provider Internal Medicine Cardiovascular Disease | DX: I49.8 Other specified cardiac arrhythmias (principal); I10 Essential (primary) hypertension; N28.9 Disorder of kidney and ureter, unspecified; Z95.0 Presence of cardiac pacemaker; Z87.891 Personal history of nicotine dependence | CPT/HCPCS: 99214 ==